=== PATIENT | male | born 1940 | race Caucasian/White ===

== ENCOUNTER → 2019-08-16 10:05 | Outpatient (CLI) | payer MEDICARE, OTHER, SELFPAY ==
--- NOTE | 2019-08-16 | DI.RAD.S_ITS ---
PROCEDURE: XR SHOULDER LT MIN 2V INDICATIONS: Pain in left shoulder TECHNIQUE: 3 views of the shoulder were acquired. COMPARISON: [facility], , SHOULDER MINIMUM 2 VIEW LEFT, 09/26/2006, 17:34. FINDINGS: Bones: No fractures or dislocations. No suspicious bony lesions. Visualized ribs appear intact. Moderate acromioclavicular degenerative narrowing. Soft tissues: No suspicious soft tissue calcifications. IMPRESSION: Moderate acromioclavicular degenerative narrowing. Dictated by: Sylvia Hodges M.D. on 08/16/2019 at 13:30 Approved by: Sylvia Hodges M.D. on 08/16/2019 at 13:37
== END ==
PROVIDERS: PCP Family Medicine; Referring Provider Family Medicine; Visit Provider Family Medicine
DX: M25.512 Pain in left shoulder (principal)
CPT/HCPCS: 73030

== ENCOUNTER → 2021-01-05 11:11 | Outpatient (CLI) | payer MEDICARE, OTHER, SELFPAY ==
--- NOTE | 2021-01-05 | DI.RAD.S_ITS ---
PROCEDURE: XR DEXA AXIAL SKELETON INDICATIONS: ROUTINE SCREENING COMPARISON: None. FINDINGS: This blank DEXA report has been sent in error by the PACS system. The correct and complete report will be forthcoming in 1-2 days. Thank you for your patience and understanding. Dictated by: Yesenia Ayoub MD, PhD on 01/05/2021 at 13:23 Approved by: Yesenia Ayoub MD, PhD on 01/05/2021 at 13:23
== END ==
PROVIDERS: PCP Family Medicine; Referring Provider Family Medicine; Visit Provider Family Medicine
DX: Z13.820 Encounter for screening for osteoporosis (principal); Z85.46 Personal history of malignant neoplasm of prostate; Z87.891 Personal history of nicotine dependence
CPT/HCPCS: 77080

== ENCOUNTER → 2021-06-05 14:32 | Outpatient (CLI) | payer MEDICARE, OTHER, SELFPAY ==
--- NOTE | 2021-06-05 | DI.CT.S_ITS ---
PROCEDURE: CT LUNG LOW DOSE SCREENING INDICATIONS: Disease of esophagus, unspecified TECHNIQUE: Noncontrast 2.0-2.5 mm thick sections acquired from the pulmonary apices to the posterior costophrenic angles. 7 mm thick axial MIP, and 5 mm coronal and sagittal reformats were then acquired. A low radiation dose technique was utilized. COMPARISON: None. FINDINGS: Image quality: Excellent. Lungs and pleura: There are multiple 2-3 mm nodules throughout both lungs, for example right upper lobe series 6, image 47. Multiple 2-3 mm nodules in the left lower lobe with a tree-in-bud peripheral appearance are seen series 6, image 83 to 99. No larger nodules or masses. No acute air space opacities. No pleural effusions or pneumothorax. Central and peripheral airways are patent and normal in caliber. Mediastinum: Heart size is normal. The coronary arteries have atherosclerotic calcifications. No pericardial effusion. No mediastinal adenopathy by size criteria. Thoracic aorta and central pulmonary arteries are normal in size. Esophagus is normal in caliber. No hiatal hernia. Bones and chest wall: Degenerative changes with no focal abnormality. No vertebral body compression fractures. There is rightward curvature of the thoracic spine. No axillary or supraclavicular adenopathy by size criteria. Thyroid gland is normal. Abdomen: Limited visualization of the upper abdomen shows no acute abnormality. IMPRESSION: Multiple 2-3 mm nodules throughout both lungs, in the left lower lobe there are clustered with a tree-in-bud appearance suggesting a possible atypical infectious process such as JESUS. LUNG-RADS 2. Very low likelihood of becoming clinically active cancer due to small size < 6 millimeters; continue annual screening with low-dose CT. Dictated by: Itz Mueller M.D. on 06/05/2021 at 15:09 Approved by: Itz Mueller M.D. on 06/05/2021 at 15:20
== END ==
PROVIDERS: PCP Family Medicine; Referring Provider Family Medicine; Visit Provider Family Medicine
DX: K22.9 Disease of esophagus, unspecified (principal); R91.8 Other nonspecific abnormal finding of lung field; Z87.891 Personal history of nicotine dependence
CPT/HCPCS: 71250

== ENCOUNTER → 2021-11-19 12:39 | Outpatient (CLI) | payer MEDICARE, OTHER, SELFPAY ==
--- NOTE | 2021-11-19 12:40 | DI.CT.S_ITS ---
PROCEDURE: CT CHEST WO CON INDICATIONS: lung nodule TECHNIQUE: Noncontrast 2.0-2.5 mm thick sections acquired from the pulmonary apices to the posterior costophrenic angles. 7 mm thick axial MIP and 5 mm coronal and sagittal reformats were then acquired. A low radiation dose technique was utilized. COMPARISON: [facility], CT, CT LUNG LOW DOSE SCREENING, 06/05/2021, 14:39. FINDINGS: Image quality: Diagnostic, given the low radiation dose technique. Lungs and pleura: Minimal opacity in the right middle lobe is similar. This most likely represents scarring or atelectasis. There is mild emphysematous change. There are several small pulmonary nodules which are unchanged in the short-term interval. For example: -right apex 0.5 cm, (3/60), unchanged. -left lower lobe tree-in-bud nodules 0.4 cm, (3/175), unchanged. Airways are clear. No pleural effusion. No pneumothorax. Mediastinum: Heart size is normal. Moderate coronary artery calcifications. No pericardial effusion. No mediastinal adenopathy by size criteria. Thoracic aorta and central pulmonary arteries are normal in size. Esophagus is normal in caliber. No hiatal hernia. Bones and chest wall: No suspicious bony lesions. No vertebral body compression fractures. No axillary or supraclavicular adenopathy by size criteria. Thyroid gland is unremarkable. Abdomen: Visualized upper abdomen solid organs and bowel loops appear normal in the absence of contrast. Liver appears somewhat coarsened. IMPRESSION: 1. Stable multiple small pulmonary nodules measuring 0.6 cm or less. Some of these nodules have a tree-in-bud distribution which could be seen in bronchitis or other atypical infection. -Recommend follow-up lung cancer screening chest CT in 12 months. 2. No pleural effusion. 3. Moderate coronary artery calcifications. 4. Liver appears somewhat coarsened. Consider liver ultrasound and correlation with LFTs. Fleischner Society criteria for SOLID lung nodule followup. Nodule size (mm)Low-risk patientHigh-risk patient<6 (single or multiple)No routine followup.Optional CT at 12 months. 6-8 (single or multiple)CT at 6-12 months, then optional CT at 18-24 mo.CT at 6-12 months, then CT at 18-24 months. >8 (single)CT at 3 months, PET-CT, or biopsy. Same as for low-risk pts. >8 (multiple)CT at 3-6 months, then optional CT at 18-24 mo.CT at 3-6 months, then CT at 18-24 months. Fleischner Society criteria for SUB-SOLID lung nodule followup. Solitary pure ground-glass nodules<6 mm (ground glass or part solid)No followup needed. 6 mm or larger (ground glass)CT at 6-12 months to confirm persistence, then CT every 2 years until 5 years.6 mm or larger (part solid)CT at 3-6 months to confirm persistence, then annual CT until 5 years if unchanged and solid component remains <6 mm. Multiple sub-solid nodules<6 mmCT at 3-6 months, then CT consider at 2 & 4 years for high risk patients. [address] at 3-6 months. Subsequent management based on most suspicious lesions. Recommendations do not apply to lung cancer screening, patients with immunosuppression, or patients with known primary cancer. Dictated by: Shawn Cornelius M.D. on 11/19/2021 at 16:29 Approved by: Shawn Cornelius M.D. on 11/19/2021 at 16:39
== END ==
PROVIDERS: PCP Family Medicine; Referring Provider Radiology Radiation Oncology; Visit Provider Radiology Radiation Oncology
DX: R91.8 Other nonspecific abnormal finding of lung field (principal); Z85.46 Personal history of malignant neoplasm of prostate; I25.10 Atherosclerotic heart disease of native coronary artery without angina pectoris
CPT/HCPCS: 71250

== ENCOUNTER → 2022-02-12 12:11 | Outpatient (CLI) | payer MEDICARE, OTHER, SELFPAY | PROVIDERS: PCP Family Medicine; Referring Provider Radiology Radiation Oncology; Visit Provider Radiology Radiation Oncology | DX: Z13.820 Encounter for screening for osteoporosis (principal); C61 Malignant neoplasm of prostate; C77.5 Secondary and unspecified malignant neoplasm of intrapelvic lymph nodes | CPT/HCPCS: 77080 ==

== ENCOUNTER → 2022-12-21 11:08 | Outpatient (CLI) | payer MEDICARE, OTHER, SELFPAY ==
--- NOTE | 2022-12-21 | DI.CT.S_ITS ---
PROCEDURE: CT CHEST WO CON INDICATIONS: SOLITARY PULMONARY NODULE TECHNIQUE: Noncontrast 2.0-2.5 mm thick sections acquired from the pulmonary apices to the posterior costophrenic angles. 7 mm thick axial MIP and 5 mm coronal and sagittal reformats were then acquired. A low radiation dose technique was utilized. COMPARISON: CT, CT LUNG LOW DOSE SCREENING, 06/05/2021, 14:39. [facility], CT, CT CHEST WO CON, 11/19/2021, 12:49. FINDINGS: Image quality: Diagnostic, given the low radiation dose technique. Lungs and pleura: There are multiple lung nodules bilaterally. Reference nodules are listed in following: Nodule 1: 6 mm; right lower lobe; series 3, image 230; new. Nodule 2: 5 mm; lingula; series 3, image 206; new. There are multiple clusters subpleural nodules in lingula, new. There is a calcified nodule in lingula, compatible with an old granuloma. Clustered nodules in superior segment of the left lower lobe and superior segment of the right lower lobe medially, demonstrating tree-in-bud configuration. These nodules or present on the last examination and minimally changed. Mediastinum: Heart size is normal. No pericardial effusion. Mild coronary artery atherosclerosis. No mediastinal adenopathy by size criteria. Thoracic aorta and central pulmonary arteries are normal in size. Esophagus is normal in caliber. No hiatal hernia. Bones and chest wall: No suspicious bony lesions. No vertebral body compression fractures. Mild selective scoliosis. Degenerative changes noted in thoracic spine and upper lumbar spine. No axillary or supraclavicular adenopathy by size criteria. Thyroid gland is unremarkable. Abdomen: Subtle nodular contour of liver appears unchanged. IMPRESSION: 1. Multiple lung nodules are present. 2 new nodules are referenced in the body of the report. Consider a short-term follow-up CT in 3 months. 2. Multiple new subpleural nodules in lingula, most likely inflammatory or infectious etiology. 3. Multiple nodules with tree in bud appearance in lower lobes bilaterally, likely inflammatory or infectious etiology. Fleischner Society criteria for SOLID lung nodule followup. Nodule size (mm)Low-risk patientHigh-risk patient<6 (single or multiple)No routine followup.Optional CT at 12 months. 6-8 (single or multiple)CT at 6-12 months, then optional CT at 18-24 mo.CT at 6-12 months, then CT at 18-24 months. >8 (single)CT at 3 months, PET-CT, or biopsy. Same as for low-risk pts. >8 (multiple)CT at 3-6 months, then optional CT at 18-24 mo.CT at 3-6 months, then CT at 18-24 months. Fleischner Society criteria for SUB-SOLID lung nodule followup. Solitary pure ground-glass nodules<6 mm (ground glass or part solid)No followup needed. 6 mm or larger (ground glass)CT at 6-12 months to confirm persistence, then CT every 2 years until 5 years.6 mm or larger (part solid)CT at 3-6 months to confirm persistence, then annual CT until 5 years if unchanged and solid component remains <6 mm. Multiple sub-solid nodules<6 mmCT at 3-6 months, then CT consider at 2 & 4 years for high risk patients. [address] at 3-6 months. Subsequent management based on most suspicious lesions. Recommendations do not apply to lung cancer screening, patients with immunosuppression, or patients with known primary cancer. Dictated by: Janny Sandy M.D. on 12/21/2022 at 13:02 Approved by: Janny Sandy M.D. on 12/21/2022 at 14:51
== END ==
PROVIDERS: PCP Family Medicine; Referring Provider Radiology Radiation Oncology; Visit Provider Radiology Radiation Oncology
DX: C61 Malignant neoplasm of prostate (principal); R91.8 Other nonspecific abnormal finding of lung field
CPT/HCPCS: 71250

== ENCOUNTER → 2023-03-16 11:44 | Outpatient (CLI) | payer MEDICARE, OTHER, SELFPAY ==
--- NOTE | 2023-03-16 | DI.CT.S_ITS ---
PROCEDURE: CT CHEST WO CON INDICATIONS: Solitary pulmonary nodule TECHNIQUE: Noncontrast 5 mm thick sections acquired from the pulmonary apices to the posterior costophrenic angles. 1 mm lung window, 5 mm thick coronal and sagittal and 7 mm axial MIP reformats were then acquired. For radiation dose reduction, the following was used: automated exposure control, adjustment of mA and/or kV according to patient size. COMPARISON: [facility], CT, CT CHEST WO CON, 11/19/2021, 12:49. [facility], CT, CT CHEST WO CON, 12/21/2022, 11:19. FINDINGS: Image quality: Diagnostic. Lower Neck: No enlarged lymph nodes. Thyroid: No thyroid nodules which require sonographic follow up, per consensus guidelines. Axillae: No enlarged lymph nodes. Chest Wall: Unremarkable. Bones: Age-appropriate bony degenerative changes are seen. Accentuated thoracic kyphosis is seen. Lungs and Pleura: Within the right lower lobe, there is a tiny area of scarring seen, measuring 3 mm, as on series 2 image 220, where there was previously seen a 6 mm spiculated nodule. Within the lingula, on series 3, image 115, there is a subpleural nodule seen measuring 5 mm, which is minimally smaller on the current study than on the prior. No new pulmonary nodules are seen. There is a small right-sided pleural effusion seen, as on series 2, image 41. This was not present on the prior examination. No left-sided pleural effusion is seen. There is no pneumothorax. No focal infiltrates are seen. Heart: Heart size is normal. No pericardial effusion. Thoracic Vessels: The aorta and pulmonary arteries demonstrate normal size. Mediastinum and Ami: No enlarged lymph nodes. Esophagus: No wall thickening. No hiatal hernia. Upper Abdomen: Visualized upper abdomen solid organs and bowel loops appear normal. IMPRESSION: The previously seen pulmonary nodules are smaller on the current study than on the prior. Recommend annual screening for lung cancer with low dose CT, as long as the patient meets the screening criteria. Dictated by: Joe Earl M.D. on 03/16/2023 at 13:46 Approved by: Joe Earl M.D. on 03/16/2023 at 13:54
== END ==
LOC: CT 11:45
PROVIDERS: PCP Family Medicine; Referring Provider Radiology Radiation Oncology; Visit Provider Radiology Radiation Oncology
DX: R91.8 Other nonspecific abnormal finding of lung field (principal)
CPT/HCPCS: 71250

== ENCOUNTER → 2024-11-08 10:42 | Outpatient (CLI) | payer MEDICARE, OTHER, SELFPAY ==
--- NOTE | 2024-11-08 10:43 | DI.CT.S_ITS ---
PROCEDURE: CT CHEST WO CON INDICATIONS: pulmonary nodule TECHNIQUE: Noncontrast 2.0-2.5 mm thick sections acquired from the pulmonary apices to the posterior costophrenic angles. 7 mm thick axial MIP and 5 mm coronal and sagittal reformats were then acquired. For radiation dose reduction, the following was used: automated exposure control, adjustment of mA and/or kV according to patient size. COMPARISON: [facility], CT, CT CHEST WO CON, 03/16/2023, 12:02. FINDINGS: Image quality: Diagnostic. Lower Neck: No enlarged lymph nodes. Thyroid: No thyroid nodules which require sonographic follow up, per consensus guidelines. Axillae: No enlarged lymph nodes. Chest Wall: Unremarkable. Bones: Degenerative changes of the visualized spine. No aggressive osseous lesion. Lungs and Pleura: No pneumothorax or pleural effusions. Resolution of previously seen small right pleural effusion. There is increased tree-in-bud nodularity in the right middle lobe, with appearance favoring infectious/inflammatory small airways process. Adjacent to this area of micro nodules, there is a new 5 mm solid pulmonary nodule along the major fissure (3/237), which is new from prior and favored to relate to infectious/inflammatory etiology. Other scattered nodules are decreased or stable in size, for example, a solid nodule measuring up to 6 mm in the right lung apex (3/55) is unchanged. Heart: Heart size is normal. No pericardial effusion. Aortic valve, mitral annular, and coronary artery calcifications. Thoracic Vessels: The aorta and pulmonary arteries demonstrate normal size. Mediastinum and Ami: No enlarged lymph nodes. Esophagus: No wall thickening. No hiatal hernia. Upper Abdomen: Visualized upper abdomen solid organs and bowel loops appear normal. IMPRESSION: There is a new 5 mm solid pulmonary nodule in the right middle lobe adjacent to an area of tree in bud nodularity suggestive of small airways infection/inflammation. Recommend LDCT in 6 months for follow up. Other scattered nodules are stable or decreased in size. Dictated by: Ana Lord M.D. on 11/08/2024 at 14:48 Approved by: Ana Lord M.D. on 11/08/2024 at 15:04
== END ==
LOC: CT 10:43
PROVIDERS: PCP Family Medicine; Referring Provider Family Medicine; Visit Provider Family Medicine
DX: R91.8 Other nonspecific abnormal finding of lung field (principal)
CPT/HCPCS: 71250